=== PATIENT | male | born 1970 | race Caucasian/White ===

== ENCOUNTER 2019-10-01 10:06 | Emergency (ER) | payer OTHER ==
[~2019-10-01] VITALS: Ht 162.6 cm; Wt 102.3 kg
[2019-10-01 11:10] LABS: APPEARANCE, URINE CLEAR (CLEAR); BACTERIA, URINE AUTO NEGATIVE (NEGATIVE); BILIRUBIN, URINE AUTO NEGATIVE (NEGATIVE); BLOOD, URINE BLOOD NEGATIVE (NEGATIVE); COLOR, URINE YELLOW (YELLOW); GLUCOSE, URINE (UA) AUTO NEGATIVE (NEGATIVE); KETONE, URINE AUTO NEGATIVE (NEGATIVE); LEUKOCYTE ESTERASE, URINE AUTO NEGATIVE (NEGATIVE); NITRITE, URINE AUTO NEGATIVE (NEGATIVE); PROTEIN, URINE AUTO 2+ mg/dL (NEGATIVE); RBC, URINE AUTO 1 /HPF (0-3); SPECIFIC GRAVITY URINE AUTO 1.014 (1.002-1.035); SQUAMOUS EPITHELIAL CELL UR AU 0 /HPF (0-6); UROBILINOGEN, URINE AUTO 0.2 mg/dL (0.0-2.0); WBC, URINE AUTO 2 /HPF (0-3)
[2019-10-01 11:11] LABS: HEMATOCRIT 46.1 % (42.0-52.0); HEMOGLOBIN 16.7 g/dl (13.5-17.5); MEAN CORPUSCULAR HGB CONC 36.2 g/dl (32.0-36.5); MEAN CORPUSCULAR VOLUME 85.7 fl (80.0-96.0); PLATELET COUNT, AUTOMATED 295 10^3/uL (150-450); RED BLOOD COUNT 5.38 10^6/uL (4.30-6.10); WHITE BLOOD COUNT 7.5 10^3/uL (4.0-10.0)
--- NOTE | 2019-10-01 11:15 | REPVR ---
PROCEDURE INFORMATION: Exam: XR Chest, 1 View Exam date and time: 10/01/2019 11:09 AM Age: 49 years old Clinical indication: Shortness of breath; Additional info: HTN TECHNIQUE: Imaging protocol: XR of the chest Views: 1 view. COMPARISON: No relevant prior studies available. FINDINGS: Lungs: Unremarkable. No consolidation. Pleural space: Unremarkable. No pleural effusion. No pneumothorax. Heart/Mediastinum: Heart size is upper normal. Vasculature: Small amount of atherosclerotic calcification at the aortic arch, greater than expected for the patient's age. Bones/joints: Mild degenerative change at the acromioclavicular joints. No acute osseous abnormality. IMPRESSION: 1. No acute cardiopulmonary abnormality. Electronically signed by: Marla Ovalle On 10/01/2019 11:15:32 AM
[2019-10-01 11:52] LABS: BLOOD UREA NITROGEN 18 MG/DL (7-18); CALCIUM LEVEL 9.4 MG/DL (8.5-10.1); CARBON DIOXIDE LEVEL 30 MEQ/L (21-32); CHLORIDE LEVEL 96 MEQ/L (98-107); CREATININE FOR GFR 1.44 MG/DL (0.70-1.30); ETHYL ALCOHOL (ETHANOL) < 0.003 % (0.000-0.010); GLOMERULAR FILTRATION RATE 55.3 (>56); GLUCOSE, FASTING 123 MG/DL (70-100); POTASSIUM SERUM 2.9 MEQ/L (3.5-5.1); SODIUM LEVEL 135 MEQ/L (136-145)
[2019-10-01] MEDS ORDERED: VALSARTAN 80 MG TAB (DIOVAN) PO ONE (13:00)
[2019-10-01] MEDS ORDERED: CARVedilol 12.5 MG TAB PO ONE (13:00)
[2019-10-01 13:08] VITALS: BP 202/109
[2019-10-01] MEDS ORDERED: K-TA1TAB PO (14:14)
[2019-10-01] MEDS ORDERED: VALS1TAB68 PO (14:14)
[2019-10-01] MEDS ORDERED: CORE12.5 PO (14:14)
[2019-10-01] MEDS ORDERED: POTASSIUM CHLORIDE 10 MEQ SR TABLET PO ONE (14:15)
[2019-10-01 14:16] VITALS: BP 183/94
[2019-10-07 10:08] LABS: ALDOSTERONE 5.6 ng/dL (0.0-30.0); RENIN LEVEL 9.603 ng/mL/hr (0.167-5.380)
--- NOTE | 2019-10-17 17:40 | ECGEPIP ---
[facility] - ED Test Date: 2019-10-01 Pat Name: SHALINI NICOLE Department: Room: 17 Gender: Female Inspecting Engineer: SOFIA : 1970 Requested By: RAVI Order Number: [id number] Reading MD: Lela Mike Measurements Intervals [place] Rate: 97 P: 64 [place]: 132 QRS: -23 QRSD: 103 T: 99 QT: 387 QTc: 492 Interpretive Statements SINUS RHYTHM POSSIBLE LEFT ATRIAL ENLARGEMENT BORDERLINE LEFT AXIS DEVIATION LEFT VENTRICULAR HYPERTROPHY AND ST-T CHANGE VSL SCHEMIA ABNORMAL ECG SEE SCANNED DOWNTIME REPORT
== END 2019-10-01 14:15 | disposition home or self-care (01) ==
LOC: M ED 10:06
DX: I12.9 Hypertensive chronic kidney disease with stage 1 through stage 4 chronic kidney disease, or unspecified chronic kidney disease (principal); N18.3 Chronic kidney disease, stage 3 (moderate); E87.6 Hypokalemia; I45.19 Other right bundle-branch block; Z79.899 Other long term (current) drug therapy; Z88.8 Allergy status to other drugs, medicaments and biological substances
CPT/HCPCS: 36415; 71045; 80048; 81001; 82088; 84244; 84443; 85027; 93005; 99284; G0480

== ENCOUNTER 2020-06-18 14:31 | Inpatient (IN) | payer OTHER ==
[~2020-06-18] VITALS: Ht 165.1 cm; Wt 112.8 kg
[2020-06-18] MEDS: METOPROLOL SUCC (TopROL XL) 100MG *XL* TAB PO SCH (09:00)
[~2020-06-18 14:31] MED LIST: CORE12.5 PO; K-TA1TAB PO; VALS1TAB68 PO
[2020-06-18] MEDS ORDERED: METO200T28 PO (14:43)
[2020-06-18] MEDS ORDERED: LABETALOL 100MG/20ML VIAL IV STA ×3 (15:05→22:58)
[2020-06-18 15:13] LABS: BASO % 0.6 % (0.0-1.0); EOS # 0.1 10^3/uL (0.0-0.5); EOS % 0.7 % (0.0-3.0); LYMPH # 2.1 10^3/uL (1.5-5.0); LYMPH % 30.3 % (24.0-44.0); MEAN CORPUSCULAR HEMOGLOBIN 31.3 pg (27.0-33.0); MEAN CORPUSCULAR HGB CONC 34.1 g/dl (32.0-36.5); MEAN CORPUSCULAR VOLUME 91.7 fl (80.0-96.0); MONO # 0.6 10^3/uL (0.0-0.8); MONO % 9.1 % (2.0-8.0); NEUTROPHILS # 4.2 10^3/uL (1.5-8.5); NEUTROPHILS % 58.6 % (36.0-66.0); PLATELET COUNT, AUTOMATED 236 10^3/uL (150-450); WHITE BLOOD COUNT 7.1 10^3/uL (4.0-10.0)
--- NOTE | 2020-06-18 15:34 | REP ---
INDICATION: CHEST PAIN. COMPARISON: 09/11/2019. TECHNIQUE: Single portable AP view of the chest was performed. FINDINGS: There is no acute infiltrate or pulmonary edema. Lungs are clear. The heart is not significantly enlarged. The mediastinal silhouette is unremarkable. The visualized osseous structures are intact. IMPRESSION: No acute pulmonary disease. <Electronically signed by Dagoberto Mccann > 06/18/20 [id number]
[2020-06-18 15:38] LABS: BLOOD UREA NITROGEN 16 MG/DL (7-18); CALCIUM LEVEL 8.8 MG/DL (8.5-10.1); CARBON DIOXIDE LEVEL 27 MEQ/L (21-32); CHLORIDE LEVEL 105 MEQ/L (98-107); CK-MB VALUE MASS 1.1 NG/ML (<3.6); CPK CREATINE PHOSPHOKINASE 148 U/L (39-308); CREATININE FOR GFR 1.35 MG/DL (0.70-1.30); GLOMERULAR FILTRATION RATE 59.6 (>56); GLUCOSE, FASTING 118 MG/DL (70-100); MB/CK RELATIVE INDEX 0.74 (< OR =4); POTASSIUM SERUM 3.9 MEQ/L (3.5-5.1); SODIUM LEVEL 139 MEQ/L (136-145); TROPONIN I < 0.02 NG/ML (< 0.10)
[2020-06-18] MEDS ORDERED: VENTAER INH (15:59)
[2020-06-18] MEDS ORDERED: ATOR80TA59 PO (15:59)
[2020-06-18] MEDS ORDERED: D31000TA2 PO (15:59)
[2020-06-18] MEDS ORDERED: ACETAMINOPHEN TAB 650MG DOSE (2X325MG) PO PRN (17:00)
[2020-06-18] MEDS ORDERED: VALS1TAB68 PO (17:19)
[2020-06-18] MEDS ORDERED: ALBUTEROL 90 MCG/ACT 8GM HFA INHALER INH PRN (17:25)
[2020-06-18] MEDS ORDERED: VALSARTAN 80 MG TAB (DIOVAN) PO SCH (18:00)
--- NOTE | 2020-06-18 19:08 | HPEPDOC ---
[facility] Medical History & Physical Date of Admission June 18, 2020 Date of Service: June 18, 2020 History and Physical CHIEF COMPLAINT: High blood pressure, was advised to present to the ED for evaluation by [facility] PCP. HISTORY OF PRESENT ILLNESS: 49 yo M with a history of CKD3 and HTN who at baseline is on 100mg on toprol XL and 320 valsartan, who ran out of his valsartan 3d ago and noted high blood pressure since and called his PCP at the [facility] today for a refill who asked to do a spot check and had SBP >200 and was advised to present to the ED. Thankfully Mr. Ross denies any chest pain, SOB, blurry vision, dizziness, palpitations, nausea or emesis. He also in general reports no recent illness including fever, chills, abdominal pain, weakness. In the ED BP remained with SBP >200 and was at its highest 240/120. He was given labetalol 10mg and as I was getting report from Dr. Kohli he was getting 20mg more of IV labetalol. Workup was otherwise unremarkable with a non ischemic EKG and negative troponin, CXR with no acute cardiopulmonary abnormalities, and WBC 7.1, hgb 15, platelets 236, Na 139, K 3.9 and Cr 1.35 at his recent baseline. On further questioning, he reports that when he has his complete meds, his BP is better control but not ideal and tends to run high. He is now being admitted for hypertensive urgency and optimization of antihypertensives. PAST MEDICAL HISTORY: CKD3 HTN Obesity PAST SURGICAL HISTORY: Vasectomy SOCIAL HISTORY: Tobacco use: None ETOH: 2 glasses of wine nightly Illicit drug use: None FAMILY HISTORY: HTN ALLERGIES: Please see below. REVIEW OF SYSTEMS: 10 point ROS was completed and pertinents were noted in the HPI above, with all else negative. HOME MEDICATIONS: Please see below. PHYSICAL EXAMINATION: VITAL SIGNS: see below GENERAL APPEARANCE: Obese, NAD HEENT: NCAT, EOMI, PERRLA, MMM CARDIOVASCULAR: Has S4, otherwise RRR no murmurs LUNGS: CTAB ABDOMEN: Obese, normoactive sounds, soft, NTND EXTREMITIES: WWP, no LE edema NEUROLOGICAL: CN2-12 intact, moving all extremities, no deficits noted PSYCHIATRIC: AOx3 LABORATORY DATA and IMAGING: as summarized above MICROBIOLOGY: Please see below. ASSESSMENT: 49 yo man with CKD3 and HTN who is being admitted for hypertensive urgency i/s/o of running out of his home antihypertensives. Hypertensive urgency: -Restart home valsartan 320mg QHS, metoprolol succinate 100mg daily and add on amlodipine 10mg daily. -s/p labetalol in the ED. May require more IV meds, will monitor -PCU -telemetry -will pursue [facility] imaging if persistent beyond multiple agents -2g sodium diet HLD: -resume home atorvastatin 80mg daily DVT ppx: heparin Dispo: PCU Vital Signs Vital Signs Date Time Temp Pulse Resp B/P (MAP) Pulse Ox O2 Delivery O2 Flow Rate FiO2 06/18/20 16:59 89 203/113 06/18/20 16:30 97 06/18/20 14:34 97.7 20 Room Air Laboratory Data Labs 24H Laboratory Tests 2 06/18/20 15:03: Immature Granulocyte % (Auto) 0.7, Neutrophils (%) (Auto) 58.6, Lymphocytes (%) (Auto) 30.3, Monocytes (%) (Auto) 9.1H, Eosinophils (%) (Auto) 0.7, Basophils (%) (Auto) 0.6, Neutrophils # (Auto) 4.2, Lymphocytes # (Auto) 2.1, Monocytes # (Auto) 0.6, Eosinophils # (Auto) 0.1, Basophils # (Auto) 0.0, Nucleated Red Blood Cells % (auto) 0.0, Anion Gap 7L, Glomerular Filtration Rate 59.6, Calcium Level 8.8, Total Creatine Kinase 148, Creatine Kinase MB 1.1, Creatine Kinase MB Relative Index 0.74, Troponin I < 0.02 CBC/BMP Laboratory Tests 06/18/20 15:03 Microbiology Microbiology 06/18/20 Respiratory Virus Panel (PCR) ([facility]), Received Pending Home Medications Scheduled Atorvastatin Calcium (Atorvastatin Calcium) 80 Mg Tablet, 80 MG PO QHS Metoprolol Succinate (Metoprolol Succinate) 200 Mg Tab.er.24h, 100 MG PO DAILY Valsartan (Valsartan) 320 Mg Tablet, 320 MG PO QHS Scheduled PRN Albuterol Sulfate (Ventolin Hfa) 18 Gm Hfa.aer.ad, 2 PUFFS INH QID PRN for SOB/WHEEZING Allergies Coded Allergies: acyclovir (Verified Allergy, Unknown, 10/01/19) A-FIB/CHADSVASC A-FIB History Current/History of A-Fib/PAF?: No Current PO Anticoag Therapy: No Age/Risk Factor Scoring CHADSVASC: CHADSVASC Response (Comments) Value Age Risk Factor Age < 65 years old 0 Gender Risk Factor Male 0 Hx of CHF No 0 Hx of HTN Yes 1 Hx of Stroke/TIA/or VTE No 0 Hx of Diabetes No 0 Hx of Vascular Disease No 0 Total 1 Treatment Treatment ordered: NONE Reason Anticoagulant not given: Not indicated/[id number] JOE CHILEL MD June 18, 2020 17:23
[2020-06-18] MEDS ORDERED: ATORVASTATIN 20 MG TAB PO SCH (21:00)
[2020-06-18] MEDS: HEPARIN SOD (PORCINE) 5000UNITS/ML 1ML VIAL/SYRINGE SC SCH (21:03)
[2020-06-18 22:30] VITALS: BP 182/110
[2020-06-19 00:20] VITALS: BP 172/97
[2020-06-19 04:20] VITALS: BP 145/76
[2020-06-19 05:44] LABS: HEMATOCRIT 42.5 % (42.0-52.0); HEMOGLOBIN 14.2 g/dl (13.5-17.5); MEAN CORPUSCULAR HEMOGLOBIN 31.2 pg (27.0-33.0); MEAN CORPUSCULAR HGB CONC 33.4 g/dl (32.0-36.5); MEAN CORPUSCULAR VOLUME 93.4 fl (80.0-96.0); PLATELET COUNT, AUTOMATED 225 10^3/uL (150-450); RED BLOOD COUNT 4.55 10^6/uL (4.30-6.10); WHITE BLOOD COUNT 6.5 10^3/uL (4.0-10.0)
[2020-06-19 06:16] LABS: BLOOD UREA NITROGEN 13 MG/DL (7-18); CALCIUM LEVEL 8.9 MG/DL (8.5-10.1); CARBON DIOXIDE LEVEL 29 MEQ/L (21-32); CHLORIDE LEVEL 103 MEQ/L (98-107); CREATININE FOR GFR 1.04 MG/DL (0.70-1.30); GLOMERULAR FILTRATION RATE > 60.0 (>56); GLUCOSE, FASTING 104 MG/DL (70-100); MAGNESIUM LEVEL 2.1 MG/DL (1.8-2.4); POTASSIUM SERUM 4.2 MEQ/L (3.5-5.1); SODIUM LEVEL 138 MEQ/L (136-145)
[2020-06-19] MEDS: HEPARIN SOD (PORCINE) 5000UNITS/ML 1ML VIAL/SYRINGE SC SCH ×2 (06:51→14:00)
[2020-06-19 08:00] VITALS: BP 188/96
[2020-06-19] MEDS: METOPROLOL SUCC (TopROL XL) 100MG *XL* TAB PO SCH (08:34)
[2020-06-19 10:35] VITALS: BP 188/96
[2020-06-19 11:34] VITALS: BP_SYST 170; BP_SYST 187; BP_DIAS 84; BP_DIAS 98
--- NOTE | 2020-06-19 13:45 | ECGEPIP ---
[facility] - ED Test Date: 2020-06-18 Pat Name: SHALINI NICOLE Department: Room: - Gender: Male Manager Report: earle : 1970 Requested By: JOHN Hart Order Number: [id number] Reading MD: Lela Mike Measurements Intervals [place] Rate: 94 P: 57 [place]: 178 QRS: -14 QRSD: 98 T: 88 QT: 376 QTc: 470 Interpretive Statements Normal sinus rhythm Possible Left atrial enlargement Incomplete right bundle branch block Minimal voltage criteria for LVH, may be normal variant ( R in aVL ) Septal infarct , age undetermined T wave abnormality, consider lateral ischemia similar 10/01/19 Electronically Signed on 06-19-2020 13:44:44 EDT by Lela Mike
[2020-06-19] MEDS ORDERED: VALS1TAB68 PO (15:17)
[2020-06-19] MEDS ORDERED: METO1TAB7 PO (15:17)
[2020-06-19] MEDS ORDERED: AMLO1TAB25 PO (15:17)
--- NOTE | 2020-06-19 15:19 | IPNPDOC ---
Text Note Date of Service The patient was seen on 06/19/20. NOTE Subjective: -No acute complaints Objective: VITAL SIGNS: see below GENERAL APPEARANCE: Obese, NAD HEENT: NCAT, EOMI, PERRLA, MMM CARDIOVASCULAR: Has S4, otherwise RRR no murmurs LUNGS: CTAB ABDOMEN: Obese, normoactive sounds, soft, NTND EXTREMITIES: WWP, no LE edema NEUROLOGICAL: CN2-12 intact, moving all extremities, no deficits noted PSYCHIATRIC: AOx3 LABORATORY DATA and IMAGING: as summarized above MICROBIOLOGY: Please see below. ASSESSMENT: 49 yo man with CKD3 and HTN who was admitted for hypertensive urgency i/s/o of running out of his home antihypertensives. Hypertensive urgency: -Continue home valsartan 320mg QHS, increase metoprolol succinate 100mg daily to 150mg daily and start on amlodipine 10mg daily. -s/p labetalol in the ED. -will pursue [facility] imaging if HTN persistent beyond multiple agents, appears to be responding well -2g sodium diet HLD: -Continue home atorvastatin 80mg daily DVT ppx: heparin Dispo: Likely home this afternoon if BP improved VS,Fishbone, I+O VS, Fishbone, I+O Laboratory Tests 06/18/20 15:03 06/19/20 05:09 Vital Signs Date Time Temp Pulse Resp B/P (MAP) Pulse Ox O2 Delivery O2 Flow Rate FiO2 06/19/20 07:23 97.4 85 19 97 Room Air 06/19/20 04:20 145/76 (99) JOE CHILEL MD June 19, 2020 07:38
--- NOTE | 2020-06-19 15:25 | DS.PDOC ---
Discharge Summary General Date of Admission June 18, 2020 at 17:00 Date of Discharge 06/19/2020 Attending Physician: JOE CHILEL MD Discharge Summary PROCEDURES PERFORMED DURING STAY: None ADMITTING DIAGNOSES: Hypertensive urgency DISCHARGE DIAGNOSES: Hypertensive urgency CKD3 HTN Obesity COMPLICATIONS/CHIEF COMPLAINT: Ckd, Hypertension,Hypertensive Urgency. HISTORY OF PRESENT ILLNESS: 49 yo M with a history of CKD3 and HTN who at baseline is on 100mg on toprol XL and 320 valsartan, who ran out of his valsartan 3d prior to presentation and noted high blood pressure since and called his PCP at the [facility] on the day of admission for a refill who asked him to do a spot check and had SBP >200 and was advised to present to the ED. Thankfully Mr. Ross denied any chest pain, SOB, blurry vision, dizziness, palpitations, nausea or emesis. He also in general reported no recent illness including fever, chills, abdominal pain, weakness. HOSPITAL COURSE: In the ED BP remained with SBP >200 and was at its highest 240/120. He was given a total of 30mg IV labetalol (10mg first then 20mg) with persistent HTN after which I restarted his valsartan early with improvement. Workup was otherwise unremarkable with a non ischemic EKG and negative troponin, CXR with no acute cardiopulmonary abnormalities, and WBC 7.1, hgb 15, platelets 236, Na 139, K 3.9 and Cr 1.35 at his recent baseline. On further questioning, he reported that when he has his complete meds, his BP is better control but not ideal and tends to run high. He was admitted for hypertensive urgency and optimization of antihypertensives. I resumed his home toprol XL but increased the dose to 150mg from 100mg daily and valsartan 320mg and also added on amlodipine 10mg and his BP is better controlled. He is now being discharged home to closely follow with his PCP for continued monitoring for further optimization of his antihypertensive therapy. DISCHARGE MEDICATIONS: Please see below. ALLERGIES: Please see below. PHYSICAL EXAMINATION ON DISCHARGE: VITAL SIGNS: Please see below. GENERAL APPEARANCE: Obese, NAD HEENT: NCAT, EOMI, PERRLA, MMM CARDIOVASCULAR: Has S4, otherwise RRR no murmurs LUNGS: CTAB ABDOMEN: Obese, normoactive sounds, soft, NTND EXTREMITIES: WWP, no LE edema NEUROLOGICAL: CN2-12 intact, moving all extremities, no deficits noted PSYCHIATRIC: AOx3 LABORATORY DATA: Please see below. IMAGING: CXR showed no acute cardiopulmonary abnormalities PROGNOSIS: Good ACTIVITY: As tolerated DIET: 2g sodium DISCHARGE PLAN: Home with 100mg toprol, 320 valsartan and amlodipine 10. DISPOSITION: Home DISCHARGE INSTRUCTIONS: 1. Please follow up promptly with your PCP for continued monitoring and optimization of your antihypertensives. For now continue to take 100mg toprol, 3 20 valsartan and amlodipine 10. ITEMS TO FOLLOWUP ON ON OUTPATIENT: HTN DISCHARGE CONDITION: Stable TIME SPENT ON DISCHARGE: 32 minutes. Vital Signs/I&Os Vital Signs Date Time Temp Pulse Resp B/P (MAP) Pulse Ox O2 Delivery O2 Flow Rate FiO2 06/19/20 07:23 97.4 85 19 97 Room Air 06/19/20 04:20 145/76 (99) Laboratory Data Labs 24H Laboratory Tests 2 06/18/20 15:03: Immature Granulocyte % (Auto) 0.7, Neutrophils (%) (Auto) 58.6, Lymphocytes (%) (Auto) 30.3, Monocytes (%) (Auto) 9.1H, Eosinophils (%) (Auto) 0.7, Basophils (%) (Auto) 0.6, Neutrophils # (Auto) 4.2, Lymphocytes # (Auto) 2.1, Monocytes # (Auto) 0.6, Eosinophils # (Auto) 0.1, Basophils # (Auto) 0.0, Nucleated Red Blood Cells % (auto) 0.0, Anion Gap 7L, Glomerular Filtration Rate 59.6, Calcium Level 8.8, Total Creatine Kinase 148, Creatine Kinase MB 1.1, Creatine Kinase MB Relative Index 0.74, Troponin I < 0.02 06/19/20 05:09: Nucleated Red Blood Cells % (auto) 0.0, Anion Gap 6L, Glomerular Filtration Rate > 60.0, Calcium Level 8.9, Magnesium Level 2.1 CBC/BMP Laboratory Tests 06/18/20 15:03 06/19/20 05:09 Microbiology Microbiology 06/18/20 Respiratory Virus Panel (PCR) ([facility]) - Final, Complete Discharge Medications Scheduled Amlodipine Besylate (Amlodipine Besylate) 10 Mg Tablet, 10 MG PO DAILY Atorvastatin Calcium (Atorvastatin Calcium) 80 Mg Tablet, 80 MG PO QHS, (Reported) Metoprolol Succinate (Metoprolol Succinate) 50 Mg Tab.er.24h, 3 TAB PO DAILY Valsartan (Valsartan) 320 Mg Tablet, 320 MG PO QHS Scheduled PRN Albuterol Sulfate (Ventolin Hfa) 18 Gm Hfa.aer.ad, 2 PUFFS INH QID PRN for SOB/WHEEZING, (Reported) Allergies Coded Allergies: acyclovir (Verified Allergy, Unknown, 10/01/19) JOE CHILEL MD June 19, 2020 07:46
[2020-06-19 15:32] VITALS: BP 160/90
[2020-06-20] MEDS ORDERED: METOPROLOL SUCC (TopROL XL) 50MG **XL** TAB PO SCH (09:00)
== END 2020-06-19 16:30 | disposition home or self-care (01) | DRG 305 ==
LOC: M ED 14:31 → M ED INP 17:00 → ENRESERV 21:16 → M PCU 22:15
PROVIDERS: ADMIT Internal Medicine; ATTEND Internal Medicine
DX: I16.0 Hypertensive urgency (principal); N18.30 Chronic kidney disease, stage 3 unspecified; E66.9 Obesity, unspecified; I12.9 Hypertensive chronic kidney disease with stage 1 through stage 4 chronic kidney disease, or unspecified chronic kidney disease; Z79.899 Other long term (current) drug therapy; Z88.8 Allergy status to other drugs, medicaments and biological substances